=== PATIENT | male | born 1960 | race Caucasian/White ===

== ENCOUNTER 2016-12-21 08:09 | Outpatient (CLI) | payer OTHER ==
[2016-12-21 08:54] LABS: ALT (SGPT) 32 U/L (0-55); AST (SGOT) 24 U/L (5-34); Alkaline Phosphatase 91 U/L (40-150); Anion Gap 11 mmol/L (10-20); BUN (Urea Nitrogen) 11 mg/dL (8.4-25.7); Bilirubin, Total 0.3 mg/dL (0.2-1.2); Calc. Creatinine Clearance 0 mL/min (70-130); Calcium 9.1 mg/dL (7.8-10.44); Carbon Dioxide 26 mmol/L (22-29); Chloride 106 mmol/L (98-107); Estimated GFR-MDRD 79; Globulin 2.7 g/dL (2.4-3.5); LDL Cholesterol, Calculated 79 mg/dL; Protein, Total 6.9 g/dL (6.0-8.3)
[2016-12-21 09:14] LABS: #Basophils 0.1 thou/uL (0.0-0.2); #Eosinphils 0.3 thou/uL (0.0-0.7); #Lymphocytes 3.1 thou/uL (1.20-3.40); #Monocytes 0.9 thou/uL (0.11-0.59); %Basophils 1.1 % (0.0-1.0); %Eosinophils 3.9 % (0.0-10.0); %Monocytes 10.2 % (0.0-10.0); Hematocrit 45.6 % (42.0-52.0); Mean Platelet Volume 8.2 fL (7.4-10.4); White Blood Cell (WBC) Count 8.5 thou/uL (4.8-10.8)
== END 2016-12-21 08:10 | disposition home or self-care (01) ==
LOC: BURLAB 08:09
PROVIDERS: ATTEND Family Medicine
DX: E78.2 Mixed hyperlipidemia (principal); E03.9 Hypothyroidism, unspecified; Z86.39 Personal history of other endocrine, nutritional and metabolic disease
CPT/HCPCS: 36415; 80053; 80061; 84443; 85025

== ENCOUNTER 2024-06-05 20:26 | Emergency (ER) | payer BC ==
[~2024-06-05 20:26] MED LIST: Iopamidol 370 76% 100 ML VIAL ONE
[2024-06-05 20:48] LABS: #Basophils 0.1 thou/uL (0.0-0.2); #Eosinphils 0.1 thou/uL (0.0-0.7); #Lymphocytes 3.5 thou/uL (1.20-3.40); #Neutrophils 5.1 thou/uL (1.40-6.50); %Basophils 1.4 % (0.0-1.0); %Eosinophils 1.5 % (0.0-10.0); %Lymphocytes 35.5 % (21.0-51.0); %Monocytes 9.8 % (0.0-10.0); %Neutrophils 51.9 % (42.0-75.0); Hematocrit 44.8 % (42.0-52.0); Hemoglobin 15.4 g/dL (14.0-18.0); Mean Corpuscular HGB CONC 34.3 g/dL (32.0-36.0); Mean Corpuscular Hemoglobin 28.6 pg (27.0-31.0); Mean Corpuscular Volume 83.5 fl (78.0-98.0); Mean Platelet Volume 7.8 fL (7.4-10.4); Platelet Count 207 10x3/uL (130-400); Red Blood Cell (RBC) Count 5.36 mill/uL (4.70-6.10); White Blood Cell (WBC) Count 9.9 10x3/uL (4.8-10.8)
[2024-06-05] MEDS ORDERED: Morphine 4 MG/ML VIAL ONE (20:52)
[2024-06-05] MEDS ORDERED: Ondansetron PF 4 MG/2 ML Vial ONE (20:52)
[2024-06-05 21:07] LABS: ALT (SGPT) 28 U/L (8-55); AST (SGOT) 22 U/L (5-34); Albumin 4.3 g/dL (3.4-4.8); Alkaline Phosphatase 110 U/L (40-110); Anion Gap 15 mmol/L (10-20); BUN (Urea Nitrogen) 9 mg/dL (8.4-25.7); Bilirubin, Total 0.8 mg/dL (0.2-1.2); Calc. Creatinine Clearance 0 mL/min (70-130); Calcium 9.7 mg/dL (7.8-10.44); Carbon Dioxide 21 mmol/L (23-31); Chloride 105 mmol/L (98-107); Estimated GFR 83; Globulin 3.5 g/dL (2.4-3.5); Glucose 104 mg/dL (80-115); Lipase 22 U/L (8-78); Potassium 3.6 mmol/L (3.5-5.1); Protein, Total 7.8 g/dL (5.8-8.1); Sodium 137 mmol/L (136-145)
[2024-06-05 21:13] LABS: Bilirubin Negative (Negative); Blood, Urine Negative (Negative); Clarity Clear (Clear); Glucose, Urine (Dipstick) Negative (Negative); Ketone, Urine Negative (Negative); Leukocyte Negative (Negative); Nitrite Negative (Negative); Protein, Urine (Dipstick) Negative (Neg-Trace); Urobilinogen 0.2 mg/dL (Less than 2); pH, Urine 5.5 (5.0-9.0)
[2024-06-05 21:23] LABS: Bacteria/HPF None Seen HPF (None Seen); CAUTI Indications for Culture Pelvic or flank pain; RBC/HPF None Seen HPF (0-3); Squamous Epithelial None Seen HPF (0-3); WBC/HPF None Seen HPF (0-3)
[2024-06-05 21:24] LABS: Urine Culture Reflex No No
[2024-06-05] MEDS ORDERED: Morphine 2 MG/ML VIAL ONE (21:57)
[2024-06-05] MEDS ORDERED: Dicyclomine 20 MG TAB ONE (22:40)
== END 2024-06-05 22:52 | disposition home or self-care (01) ==
LOC: BURERS 20:26
DX: R10.31 Right lower quadrant pain (principal); R14.0 Abdominal distension (gaseous); E03.9 Hypothyroidism, unspecified; F17.210 Nicotine dependence, cigarettes, uncomplicated; Z79.899 Other long term (current) drug therapy; Z79.82 Long term (current) use of aspirin
CPT/HCPCS: 74177; 80053; 81001; 83690; 85025; 96374; 96375; 96376; J2272; J2405; Q9967